=== PATIENT | male | born 1985 | race African-American/Black ===

== ENCOUNTER → 2020-01-14 | Outpatient (CLI) | payer OTHER ==
--- NOTE | 2020-01-15 01:42 | REPPI ---
Clinical: Shortness of breath. Technique: PA and lateral. Comparison: None. Findings: Diffuse bilateral reticulonodular infiltrates most suggestive of multifocal pneumonia / pneumonitis. No discrete focal consolidation. No effusion. No pneumothorax. Mediastinum and cardiac silhouette are normal. Skeletal structures are intact. Impression: Diffuse reticulonodular interstitial infiltrates suggest pneumonia / pneumonitis. Correlation is required. Electronically Signed by Curt Hayes MD 01/15/2020 01:33 A
== END ==
LOC: M PLAIMG 14:41
PROVIDERS: ATTEND Internal Medicine Pulmonary Disease
DX: R06.02 Shortness of breath (principal); R91.8 Other nonspecific abnormal finding of lung field

== ENCOUNTER → 2020-01-18 | Outpatient (CLI) | payer OTHER ==
[2020-01-18 13:18] LABS: ALBUMIN 3.9 GM/DL (3.2-5.2); ALT/SGPT 39 U/L (12-78); BILIRUBIN,DIRECT 0.1 MG/DL (0.0-0.2); BILIRUBIN,TOTAL 0.4 MG/DL (0.2-1.0); CALCIUM LEVEL 9.5 MG/DL (8.5-10.1); GLOMERULAR FILTRATION RATE > 60.0 (>60); TOTAL PROTEIN 7.3 GM/DL (6.4-8.2)
[2020-01-18 13:25] LABS: BASO # 0.1 10^3/uL (0.0-0.2); BASO % 1.5 % (0.0-1.0); EOS # 0.4 10^3/uL (0.0-0.5); EOS % 8.3 % (0.0-3.0); HEMOGLOBIN 14.9 g/dl (13.5-17.5); LYMPH # 0.5 10^3/uL (1.5-5.0); LYMPH % 10.4 % (24.0-44.0); MEAN CORPUSCULAR HEMOGLOBIN 26.4 pg (27.0-33.0); MEAN CORPUSCULAR HGB CONC 32.4 g/dl (32.0-36.5); MEAN CORPUSCULAR VOLUME 81.6 fl (80.0-96.0); MONO # 0.7 10^3/uL (0.0-0.8); MONO % 14.3 % (0.0-5.0); NEUTROPHILS # 3.1 10^3/uL (1.5-8.5); NEUTROPHILS % 65.3 % (36.0-66.0); PLATELET COUNT, AUTOMATED 281 10^3/uL (150-450); RED BLOOD COUNT 5.64 10^6/uL (4.30-6.10); WHITE BLOOD COUNT 4.7 10^3/uL (4.0-10.0)
[2020-01-18 14:02] LABS: ERYTHROCYTE SEDIMENTATION RATE 3 mm/hr (0-15)
[2020-01-25 11:07] LABS: ANCA-ATYPICAL <1:20 titer (Neg:<1:20); ANGIOTENSIN 1 CONVERTING ENZYM 94 U/L (14-82); ANTI DS-DNA AB Negative (Negative); ANTINUCLEAR ANTIBODIES DIRECT Negative (Negative); ASPERGILLUS FUMIGATUS AB Negative (Negative); AUREOBASIDIUM PULLULANS Negative (Negative); CYTOPLASMIC NEUTROP AB ANCA-C <1:20 titer (Neg:<1:20); MICROPOLYSPORA FAENI AB Negative (Negative); PERINUCLEAR AB ANCA-P <1:20 titer (Neg:<1:20); PIGEON SERUM AB Negative (Negative); RNP ANTIBODIES 0.2 AI (0.0-0.9); SJOGREN'S ANTI SS-A <0.2 AI (0.0-0.9); SJOGREN'S ANTI SS-B <0.2 AI (0.0-0.9); SMITH ANTIBODIES <0.2 AI (0.0-0.9); THERMOACTINOMYCES SACCHARI Negative (Negative); THERMOACTINOMYCES VULGARIS Negative (Negative)
== END ==
LOC: M PLALAB 10:54
PROVIDERS: ATTEND Internal Medicine Pulmonary Disease
DX: R91.8 Other nonspecific abnormal finding of lung field (principal)

== ENCOUNTER → 2020-01-31 | Outpatient (CLI) | payer OTHER ==
[~2020-01-31] MED LIST: METHACHOLINE KIT (J7674) INH ONE
--- NOTE | 2020-01-31 14:40 | PFTRPT ---
Visit Date: 01/31/2020 Second ID: [id number] Referring Doctor: Garth Moore MD Height: 72.00 Inches Weight: 232.00 Lbs BSA: 2.27 Diagnosis: R06.02 Spirometry: Study of excellent technical quality. Forced vital capacity reduced. FEV1 in proportion. Obstructive index is, therefore, normal. Flow Volume Loop: Expiratory limb of the flow volume loop does suggest a degree of restriction. Lung Volumes: Total lung capacity is normal. Residual volume is in proportion. Diffusing Capacity: Diffusing capacity mildly reduced but is appropriate for alveolar volume. Hemoglobin: Hemoglobin acceptable at 15.5. Airway Mechanics: Airway resistance and conductance are normal. IMPRESSION: Mild restrictive ventilatory impairment. Please correlate clinically. MTDD
--- NOTE | 2020-01-31 15:26 | PFTRPT ---
Visit Date: 01/31/2020 Referring Doctor: Garth Moore MD Height: 72.00 Inches Weight: 232.00 Lbs BSA: 2.27 Diagnosis: R06.02 Study of excellent technical quality. Under protocol, methacholine was administered. Some difficulty with effort at the maximal dose is noted, but even at a maximal dose of 25 mg (188.875 CDUs), no provocation dose was ever achieved. IMPRESSION: Negative methacholine challenge study. MTDD
== END ==
LOC: M CARPUL 13:44
PROVIDERS: ATTEND Internal Medicine Pulmonary Disease
DX: R06.02 Shortness of breath (principal); R91.8 Other nonspecific abnormal finding of lung field
CPT/HCPCS: 88738; 94010; 94070; 94726; 94729; J7674

== ENCOUNTER 2020-02-13 11:06 | Day surgery (SDC) | payer OTHER ==
[~2020-02-13] VITALS: Ht 182.9 cm; Wt 107.0 kg
[~2020-02-13 11:06] MED LIST changes: +D5W 1,000 ML IV SCH; -METHACHOLINE KIT (J7674) INH ONE
[2020-02-13] MEDS ORDERED: D5W 500 ML ONE (11:34)
[2020-02-13] MEDS ORDERED: LIDOCAINE 1% MDV 20ML VIAL As Ordered ONE (11:43)
[2020-02-13] MEDS ORDERED: LIDOCAINE VISCOUS 2% SOLN 15ML UDC As Ordered ONE (11:43)
[2020-02-13] MEDS ORDERED: EPINEPHrine 1MG/10ML SYRINGE 1.5IN As Ordered ONE (11:43)
[2020-02-13] MEDS ORDERED: MIDAZOLAM INJ 2MG/2ML VIAL (J2250 PER 1MG) As Ordered ONE ×3 (11:49→12:27)
[2020-02-13] MEDS ORDERED: fentaNYL 100 MCG/2 ML INJECTION (J3010) As Ordered ONE (11:49)
[2020-02-13] MEDS ORDERED: CETACAINE SPRAY 5GM As Ordered ONE (12:27)
--- NOTE | 2020-02-13 13:21 | RO ---
DATE OF PROCEDURE: 02/13/2020 PREPROCEDURE DIAGNOSIS: Abnormal CT scan. POSTPROCEDURE DIAGNOSIS: Abnormal CT scan. PROCEDURE: Fiberoptic bronchoscopy with washes, transbronchial biopsies under fluoroscopic guidance and photos. SURGEON: Dr. Garth Moore IN CLASS SPECIAL EDUCATION TEACHER: ANESTHESIA: Conscious sedation with 8 mg of intravenous Versed and 100 mcg of intravenous fentanyl given intravenously and titrated for effect. OTHER MEDICATIONS: 5000 units of topical thrombin. 2% viscous Xylocaine in the nose, Cetacaine spray in the pharynx, and 1% Xylocaine via the bronchoscope. Informed consent was obtained prior to the procedure. OPERATIVE FINDINGS: 1. Some nodularity to the posterior pharynx suggesting either granulomatous disease versus allergies. 2. Otherwise normal airways. DESCRIPTION OF PROCEDURE: After the patient was identified and the above anesthesia given, the fiberoptic bronchoscope was easily passed via the left nares. Hypopharynx was entered. There was some nodularity to the hypopharynx suggesting either inflammatory nodules from allergies or granulomatous disease. Vocal cords moved well. The trachea was entered and was widely patent. The dyan was sharp and moved well. Both mainstem bronchi widely patent. The right lung entered first. Upper, middle, and lower lobes easily identified and widely patent. No focal mucosal or endobronchial abnormalities identified. The left lung was then entered. Again, upper and lower lobes easily identified and widely patent without obvious endobronchial or mucosal abnormalities. Under fluoroscopic guidance, multiple biopsies were taken transbronchially at the left upper lobe. Minimal bleeding was encountered. The area was also lavaged. Topical thrombin was used to assure adequate hemostasis. When this was assured, the scope was then withdrawn and the procedure terminated. Fluoroscopic examination immediately postprocedure showed no evidence of pneumothorax. The patient was taken to the recovery room in good and stable condition. No immediate complications of conscious sedation were identified. Chest x-ray was ordered for 1 hour postprocedure.
[2020-02-13] MEDS ORDERED: THROMBIN SOLN 5,000 UNITS VIAL XX ONE (13:30)
[2020-02-13] MEDS ORDERED: LIDOCAINE 4% INJ 5ML AMP INH ONE (13:30)
[2020-02-13] MEDS ORDERED: fentaNYL 100 MCG/2 ML INJECTION (J3010) IV ONE (13:30)
[2020-02-13] MEDS ORDERED: ALBUTEROL SULFATE 2.5 MG/0.5 ML INH NEB SOLN INH ONE (13:30)
[2020-02-13 13:35] VITALS: BP 126/65
[2020-02-13] MEDS ORDERED: MIDAZOLAM INJ 2MG/2ML VIAL (J2250 PER 1MG) IV ONE (13:45)
--- NOTE | 2020-02-13 14:39 | REP ---
Clinical: Status post procedure. Comparison: 01/14/2020. Findings: Diffuse reticulonodular infiltrates primarily involving the upper lung zones again noted and similar to prior examination. Mediastinal widening suggesting underlying adenopathy is also appreciated. The cardiac silhouette is within normal limits. No effusion. No pneumothorax. Skeletal structures are intact. Impression: 1. Diffuse bilateral reticulonodular and alveolar infiltrates with upper lobe predominance again noted. Mediastinal adenopathy. 2. No pneumothorax. Electronically Signed by Curt Hayes MD 02/13/2020 02:30 P
== END 2020-02-13 15:00 | disposition home or self-care (01) ==
LOC: M OPP 11:06
PROVIDERS: ATTEND Internal Medicine Pulmonary Disease
DX: R91.8 Other nonspecific abnormal finding of lung field (principal)
CPT/HCPCS: 31624; 31628; 71045; 76000; 87070; 87102; 87116; 87205; 87206; 88104; 88305; 96361; 96374; 96375; J2250; J3010

== ENCOUNTER → 2020-03-12 | Outpatient (CLI) | payer OTHER ==
--- NOTE | 2020-03-12 14:10 | REPPI ---
REASON: Followup. COMPARISON: The latest portable exam 02/13/2020 and the latest two-view exam 01/14/2020. Once again, there are diffuse reticulonodular density scattered throughout both lung knowles, status quo. No acute patchy parenchymal opacities or pleural effusions seem to have developed. The pleural angles are sharp. The heart is not enlarged. There is no change in the osseous structures. IMPRESSION: No significant change. Electronically Signed by Christopher Hernandez DO 03/12/2020 04:09 P
== END ==
LOC: M PLAIMG 11:06
PROVIDERS: ATTEND Internal Medicine Pulmonary Disease
DX: R91.8 Other nonspecific abnormal finding of lung field (principal)

== ENCOUNTER → 2020-03-18 | Outpatient (CLI) | payer OTHER ==
[2020-03-18 17:01] LABS: ALBUMIN 3.8 GM/DL (3.2-5.2); ALT/SGPT 28 U/L (12-78); BILIRUBIN,DIRECT < 0.1 MG/DL (0.0-0.2); BILIRUBIN,TOTAL 0.4 MG/DL (0.2-1.0); BLOOD UREA NITROGEN 19 MG/DL (7-18); CALCIUM LEVEL 9.5 MG/DL (8.5-10.1); CARBON DIOXIDE LEVEL 32 MEQ/L (21-32); CHLORIDE LEVEL 103 MEQ/L (98-107); CREATININE FOR GFR 1.33 MG/DL (0.70-1.30); GLOMERULAR FILTRATION RATE > 60.0 (>60); GLUCOSE, FASTING 93 MG/DL (70-100); PHOSPHORUS LEVEL 2.7 MG/DL (2.5-4.9); POTASSIUM SERUM 3.7 MEQ/L (3.5-5.1); SODIUM LEVEL 140 MEQ/L (136-145)
[2020-03-18 17:02] LABS: BASO # 0.1 10^3/uL (0.0-0.2); BASO % 0.5 % (0.0-1.0); EOS # 0.3 10^3/uL (0.0-0.5); EOS % 2.3 % (0.0-3.0); HEMATOCRIT 46.2 % (42.0-52.0); HEMOGLOBIN 14.8 g/dl (13.5-17.5); LYMPH # 0.8 10^3/uL (1.5-5.0); LYMPH % 6.3 % (24.0-44.0); MEAN CORPUSCULAR HEMOGLOBIN 26.5 pg (27.0-33.0); MEAN CORPUSCULAR VOLUME 82.6 fl (80.0-96.0); MONO # 0.9 10^3/uL (0.0-0.8); MONO % 7.4 % (0.0-5.0); NEUTROPHILS # 10.1 10^3/uL (1.5-8.5); NEUTROPHILS % 83.1 % (36.0-66.0); PLATELET COUNT, AUTOMATED 262 10^3/uL (150-450); RED BLOOD COUNT 5.59 10^6/uL (4.30-6.10); WHITE BLOOD COUNT 12.2 10^3/uL (4.0-10.0)
== END ==
LOC: M LRY 09:58
PROVIDERS: ATTEND Internal Medicine Pulmonary Disease
DX: D86.0 Sarcoidosis of lung (principal)